=== PATIENT | female | born 1985 | race Caucasian/White ===

== ENCOUNTER → 2017-11-23 17:44 | Observation (INO) ==
[2017-11-23 15:08] VITALS: BP 120/84
[2017-11-23 15:53] LABS: Basophils % 0.2 %; Eosinophils # 0.2 K/mcL (0.0-0.6); Eosinophils % 1.8 %; Hematocrit 36.1 % (35.3-44.9); Hemoglobin 12.1 g/dL (11.5-15.4); Immature Granulocytes % 0.5 % (0-4); Lymphocytes # 2.2 K/mcL (0.6-4.6); Mean Corpuscular HGB Conc 33.5 g/dL (31.6-35.5); Mean Corpuscular Hemoglobin 28.9 pg (28.0-33.3); Mean Corpuscular Volume 86.4 fL (83.0-100.0); Mean Platelet Volume 13.2 fL (9.4-12.4); Monocytes # 0.8 K/mcL (0.0-1.3); Monocytes % 8.2 %; Neutrophils # 6.1 K/mcL (1.6-8.9); Platelet Count 161 K/mcL (140-400); Red Blood Count 4.18 M/mcL (3.82-4.97); Red Cell Distribution Width 13.2 % (11.5-14.5); Segmented Neutrophils % 65.3 %
[2017-11-23 16:05] LABS: Amphetamine Screen,Urine Negative ng/mL (Cutoff=1000); Barbiturate Screen,Urine Negative ng/mL (Cutoff=200); Benzodiazepines Screen,Urine Negative ng/mL (Cutoff=200); Cannabinoid Screen,Urine Negative ng/mL (Cutoff = 50); Cocaine Screen,Urine Negative ng/mL (Cutoff= 300); Opiate Screen,Urine Negative ng/mL (Cutoff=300); Phencyclidine Screen,Urine Negative ng/mL (Cutoff=25)
[2017-11-23 16:13] LABS: Alanine Aminotransferase 16 Units/L (7-52); Aspartate Amino Transferase 19 Units/L (13-39); BUN/Creatinine Ratio 18 (6-26); Blood Urea Nitrogen 8 mg/dL (6-20); Lactate Dehydrogenase 137 Units/L (140-271); Uric Acid 3.3 mg/dL (2.3-7.6); eGFR For African Americans > 60 (> 60); eGFR For Non-African Americans > 60 (> 60)
[2017-11-23 17:00] LABS: Protein/Creatinine Ratio,Urine 0.18 mg/mg (0.00-0.20)
--- NOTE | 2017-11-23 17:42 | OB/GYN Progress Note ---
Date of Encounter: 11/23/17 Time of Encounter: 17:29 - Assessment and Plan (1) NST (non-stress test) reactive Current Visit: Yes Status: Acute NST reactive PIH labs negative, pt asymptomatic BPs stable, last 124/78 Pt counseled on labor precautions and concerning sx. Will discharge, has f/u Sunday with Dr. Vicente. (2) 36 weeks gestation of Current Visit: Yes Status: Acute Subjective - Subjective Principal diagnosis: PIH Eval Interval history: Ms. Gunter is a 32 y/o F at 36 2/7 weeks gestation who presents from the office for PIH eval. She sees. Dr. Vicente, who she saw today and he noted elevated BP of 142/92. She reports good movement. She denies feeling any contractions, HÉCTOR, VB, DELGADO, visual changes, dizziness, CP, SOB. Antepartum ROS: movement normal, no loss of fluid, no vaginal bleeding, no contractions Objective - Vital Signs Vital Signs: Vital Signs Temp Pulse Resp BP 11/23/17 15:02 97.4 F L 106 20 120/84 - Exam FHR: auscultation normal, category 1 Auscultation: bilateral: normal Abdomen: Present: normal appearance, soft, gravid Uterus: Present: normal, firm - Labs Labs: Abnormal lab results MPV 13.2 fL (9.4-12.4) H 11/23/17 15:02 Creatinine 0.45 mg/dL (0.60-1.20) L 11/23/17 15:02 Lactate Dehydrogenase 137 Units/L (140-271) L 11/23/17 15:02 Urine Total Protein 31 mg/dL (1-14) H 11/23/17 15:24
== END | disposition home or self-care (01) ==
LOC: 1NENULAB
PROVIDERS: ADMIT Obstetrics & Gynecology; ATTEND Obstetrics & Gynecology

== ENCOUNTER 2017-12-06 04:00 | Inpatient (IN) ==
[2017-12-06] MEDS ORDERED: *HR* Nalbuphine 10 MG/ML AMPUL IVP PRN (05:04)
[2017-12-06] MEDS ORDERED: miSOPROStol 25 MCG TABLET VG PRN (05:04)
[2017-12-06] MEDS ORDERED: Naloxone 0.4 MG/ML INJ IVP PRN ×4 (05:04→17:48)
[2017-12-06] MEDS ORDERED: Famotidine 20 MG/2 ML VIAL IVP PRN (05:04)
[2017-12-06 05:26] LABS: Basophils % 0.3 %; Eosinophils # 0.2 K/mcL (0.0-0.6); Eosinophils % 2.3 %; Hematocrit 35.2 % (35.3-44.9); Hemoglobin 11.7 g/dL (11.5-15.4); Immature Granulocytes % 0.6 % (0-4); Lymphocytes # 2.6 K/mcL (0.6-4.6); Mean Corpuscular HGB Conc 33.2 g/dL (31.6-35.5); Mean Corpuscular Hemoglobin 28.6 pg (28.0-33.3); Mean Corpuscular Volume 86.1 fL (83.0-100.0); Mean Platelet Volume 12.8 fL (9.4-12.4); Monocytes # 0.9 K/mcL (0.0-1.3); Monocytes % 9.7 %; Neutrophils # 5.8 K/mcL (1.6-8.9); Platelet Count 140 K/mcL (140-400); Red Blood Count 4.09 M/mcL (3.82-4.97); Red Cell Distribution Width 13.4 % (11.5-14.5); Segmented Neutrophils % 60.1 %
--- NOTE | 2017-12-06 06:11 | OB/GYN History & Physical ---
Date of Encounter: 12/06/17 Time of Encounter: 05:57 Assessment and Plan (1) 38 weeks gestation of Current visit: Yes Status: Acute (2) Gestational hypertension affecting third Current visit: Yes Status: Acute Admit for IOL. Cytotec 25mcg given vaginally upon admission. Epidural if requested. GBS negative. Anticipate . Plan for tubal ligation per pt request. History of Present Illness Chief complaint: gestational hypertension HPI: Ms. Gunter is a 32 year old female presenting at 38w1d for IOL due to gestational hypertension. She denies complaints upon admission. Blood type A positive Rubella immune Serologies negative GBS negative Past Med Surg Social Fam HX - Past Medical History Medical history: no medical history Psychiatric history: no psych history - Past Surgical History Surgical History: no surgical history - Social History Smoking Status: Never smoker Smokeless Tobacco Status: No Alcohol use: none Drug use: none - Family History Mother Hx Family Cardiac Disorders: Yes (hypertension) Obstetrical History - Pregnancies : 3 Term: 2 Livin - History/Complications History/Complications: Pre-eclampsia with previous Medications and Allergies Complete Caplet 1 tab PO DAILY 11/23/17 [History] Ascorbic Acid [Vitamin C] 500 mg PO DAILY 12/06/17 [History] 3 Allergy/AdvReac Type Severity Reaction Status Date / Time No Known Allergies Allergy Verified 11/23/17 15:10 Review of System OB All systems PM: reviewed and no additional remarkable complaints except as stated Exam - Constitutional Constitutional: well developed, well nourished, no acute distress - HEENT HEENT: Mucus Membranes Moist - Lungs Respiratory exam: CTAB - Cardiovascular Cardiovascular exam: RRR - Abdomen Abdomen: Present: gravid, non tender - Extremities Extremities exam: normal inspection Deep Tendon Reflex Grade: 2+ Normal - Uterus Uterus exam: Present: normal size - Anus/Rectum Anus/Rectum: Present: normal perianal skin Results Result Diagrams: 12/06/17 05:07 Abnormal lab results Hct 35.2 % (35.3-44.9) L 12/06/17 05:07 MPV 12.8 fL (9.4-12.4) H 12/06/17 05:07 All other labs normal. - VTE Reasons for not Prescribing Prophylaxis: Treatment not Indicated - Low risk for VTE
[2017-12-06 07:18] LABS: Amphetamine Screen,Urine Negative ng/mL (Cutoff=1000); Barbiturate Screen,Urine Negative ng/mL (Cutoff=200); Benzodiazepines Screen,Urine Negative ng/mL (Cutoff=200); Cannabinoid Screen,Urine Negative ng/mL (Cutoff = 50); Cocaine Screen,Urine Negative ng/mL (Cutoff= 300); Opiate Screen,Urine Negative ng/mL (Cutoff=300); Phencyclidine Screen,Urine Negative ng/mL (Cutoff=25)
--- NOTE | 2017-12-06 12:26 | OB Labor Progress Note ---
Date of Encounter: 12/06/17 Time of Encounter: 12:24 Labor Progress Note - Subjective Subjective: patient is doing well, feeling more of her ctxs - Vital Signs Vital Signs: VSS - Cervix Cervix: 70 - Heart Tones Heart Tones: CAT 1 - Pineland Pineland: Q1 - Plan Plan: hold off on pitocin due to tachysystole, will start pit when resolved, ok for epidural when desired, anticipate
[2017-12-06] MEDS: Ringers Solution, Lactated 1,000 ML IVC SCH (13:11)
[2017-12-06] MEDS: Oxytocin 20 units/ LR 1000 mL 20 UNIT/1,000 ML BAG IVC SCH ×2 (13:13→23:04)
[2017-12-06] MEDS ORDERED: Ondansetron 4 MG/2 ML VIAL IVP PRN ×3 (14:13→17:48)
[2017-12-06] MEDS ORDERED: Bupivacaine-MPF 0.25% 10 ML VIAL EP ONE (14:13)
[2017-12-06] MEDS ORDERED: *HR* FentaNYL (PF) 100 MCG/2 ML VIAL EP ONE (14:13)
[2017-12-06] MEDS ORDERED: EPHEDrine 50 MG/ML VIAL IVP PRN (14:13)
[2017-12-06] MEDS ORDERED: Epidural Premix (fent/bupiv) 110 ML EP SCH (14:15)
--- NOTE | 2017-12-06 14:20 | Anesthesia Evaluation PreOp ---
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 No surgeries in pt history, no family history of anesthesia complications.) : Yes Alcohol Use: none Drug use: none Medications and Allergies Complete Caplet 1 tab PO DAILY 11/23/17 [History] Ascorbic Acid [Vitamin C] 500 mg PO DAILY 12/06/17 [History] 3 Allergy/AdvReac Type Severity Reaction Status Date / Time No Known Allergies Allergy Verified 11/23/17 15:10 - Meds/Allergy Pre-op Review Medications Reviewed: Yes Allergies Reviewed: Yes Beta Blockers on Current Med List: No Anesthesia Results - Labs 12/06/17 05:07 Anesthesia Exam BP 143/99 P 82 R 16 T 97.5 Height: 5'7" Weight: 93.6kg Pain Scale: 3 Pain Scale Used: Numeric (1 - 10) - HEENT Pupil (Motor): Pupils equal Mallampati: II Teeth: Normal Oral Opening: Greater than 3 - CRUSHER SCREEN REPAIRER LOC: Oriented CRUSHER SCREEN REPAIRER Motor: Normal RUE, Normal LUE, Normal RLE, Normal LLE, Normal Face CRUSHER SCREEN REPAIRER Sensory: Normal: RUE, LUE, RLE, LLE, Face - Cardiac Rhythm: Regular Murmur: None JVD: No Carotid Bruit: No - Pulmonary Breath Sounds: bilateral Clear Respiratory Effort: Symmetrical Anesthesia Assess/Plan ASA Score: 2 Modified Barry Scale for Level of Consciousness: Cooperative, oriented, and tranquil Anesthetic Plan: Regional Autologous Blood: No Monitoring Plan: Standard Monitors Recovery Plan: Other
[2017-12-06] MEDS ORDERED: *HR* FentaNYL (PF) 100 MCG/2 ML VIAL ONE (14:40)
[2017-12-06] MEDS ORDERED: Bupivacaine-MPF 0.25% 10 ML VIAL ONE (14:40)
[2017-12-06] MEDS ORDERED: Epidural Premix (fent/bupiv) 110 ML EP ONE (14:48)
[2017-12-06] MEDS ORDERED: EPHEDrine 50 MG/ML VIAL ONE (15:22)
--- NOTE | 2017-12-06 15:41 | Anesthesia Procedures ---
Date of Encounter: 12/06/17 Time of Encounter: 14:45 Procedures: Anesthesia - Epidural/Spinal Patient ID/Chart reviewed: Yes Patient examined: Yes OB Eval: Gestational age: 38.1 OB Eval: : 3 OB Eval: Hx Para: 2 OB Eval: Dilated at (cm): 4 OB Eval: Contractions: Non-stressed pattern Consent Obtained: Yes Supplemental Oxygen: None/Room Air Site Prep: Aseptic Technique, Sterile prep and drape, Povidone-Iodine 1% Patient position: upright Local Anesthetic: Lidocaine 1% Amount of Local Anesthetic used: 3 Touhy Needle Gauge: 18 Touhy Needle Depth (cm): 6 Catheter Depth at Skin (cm): 15 Test Dose (1.5% Lido + Epi): Volume given (mls): 3 Test Dose Result: Negative Loading Dose: 0.25% Marcaine (mls): 10 Loading Dose: Fentanyl (mcg): 100 Loading Dose Administered: Thru Catheter Infusion Med: 0.125% Bupivacaine w/ 2 mcg/ml Fentanyl Infusion Rate (mls/hr): [address]: Tegaderm, Tape Interspace Used: L4-L5 Loss of Resistance (IMMANUEL): Yes Blood: No CSF: No Paresthesia: No Procedure: BARRETT placed 1st pass in upright position without any immediate noted complications. Vitals + FHT's: 1445 BP 140/99 R 18 P 87 1515 BP 111/75 R 16 P 78 FHT 130s
--- NOTE | 2017-12-06 16:02 | OB Labor Progress Note ---
Date of Encounter: 12/06/17 Time of Encounter: 16:02 Labor Progress Note - Subjective Subjective: s/p epidural, had some late decels with epid due to drop in BP but with recovery - Vital Signs Vital Signs: VSS - Cervix Cervix: 4/80 - Heart Tones Heart Tones: CAT 2 - Plan Plan: patient AROM'ed with clear fluid cont watching strip
[2017-12-06] MEDS ORDERED: Morphine Sulfate/PF 5mg/10mL Vial ONE (16:42)
[2017-12-06] MEDS ORDERED: *HR* OxyCODONE/APAP 5/325 TABLET PO PRN ×2 (16:55→17:48)
[2017-12-06] MEDS ORDERED: *HR* Morphine 2 MG/ML SYRINGE IVP PRN (16:55)
[2017-12-06] MEDS ORDERED: Ibuprofen 400 MG TABLET PO PRN (16:55)
[2017-12-06] MEDS ORDERED: *HR* Oxytocin 10 UNIT/ML VIAL IM ONE (17:04)
[2017-12-06] MEDS ORDERED: Ringers Solution, Lactated 2,000 ML ONE (17:07)
[2017-12-06] MEDS ORDERED: Ondansetron 4 MG/2 ML VIAL ONE (17:16)
--- NOTE | 2017-12-06 17:22 | OB/GYN Procedure Note ---
OB-SUPPLY TECH: Procedure - Diagnosis Date of procedure: 12/06/17 Pre-op diagnosis: CAT 2 tracing, malpresentation(foot as presenting part) , undesired fertility Post-op diagnosis: same - Procedure Procedure: Primary , bilateral partial salpingectomy Surgeon: Tarik Vicente Was there an restaurant assistant present: Yes Senior Erp Consultant: Delgado Swenson Anesthesia Type: General Estimated blood loss (cc): 300 Fluids: crystalloid Procedure Complications: none Specimens collected: bilateral tubes, placenta Disposition: floor Findings: fibroid uterus, normal tubes and ovaries Narrative: Indications: Mervin is a 32 y/o @ 38+1 weeks who was being induced for gestational hypertension. She got her epidural, membranes were ruptured and shortly afterwards it was noted that she started having recurrent variable decels. She was checked and it was noted that the feet could be felt "wedged" in with the head. After counseling the patient, the decision was made to perform a section. She had signed a tubal consent form in the office to have her tubes tied and declared that instead of coming back to the office to have a procedure done in 3 months s/p vag delivery(which was what we hoped for) she would give verbal consent to perform bilateral partial salpingectomy at time of the . She gave verbal consent for bilateral partial salpingectomy. Procedure: The patient was taken to the operating room where epidural anesthesia was found to be adequate. The patient was prepped and draped in the usual sterile fashion in the dorsal supine position with a left-lora tilt. A Pfannenstiel skin incision was made with the scalpel and carried through to the underlying layer of fascia. The fascia was incised in the midline and extended laterally using Farnsworth scissors. Santana clamps were used to elevate the superior aspect of the fascial incision, which was elevated, and the underlying rectus muscles were dissected off bluntly and using Farnsworth scissors. Attention was then turned to the inferior aspect of the fascial incision, which in similar fashion was grasped with Santana clamps, elevated, and the underlying rectus muscles were dissected off bluntly and using Farnsworth scissors. The rectus muscles were dissected in the midline. The peritoneum was bluntly dissected, entered, and extended superiorly and inferiorly with good visualization of the bladder. The bladder blade was inserted. The vesicouterine peritoneum was identified with pickups and entered sharply using Metzenbaum scissors. This incision was extended laterally and the bladder flap was created digitally. The bladder blade was reinserted. The lower uterine segment was incised in a transverse fashion using the scalpel and extended using manual traction. The was subsequently delivered atraumatically. The nose and mouth were bulb suctioned. The cord was clamped and cut. The was subsequently handed to the awaiting nursery nurse. The placenta was removed spontaneously intact with a 3-vessel cord noted. The uterus was exteriorized and cleared of all clots and debris. The uterine incision was repaired in 2 layers using 0 vicryl suture. Hemostasis was visualized. At this point, attention was diverted to the patient's tubes, a Lansing clamp grasped the isthmic portion of each tube and approximately 1-cm knuckle on either side was tied off with two lengths of 0 plain catgut. Intervening knuckle was excised and passed off the field. The uterus was returned to the abdomen. The uterine incision was reexamined and was noted to be hemostatic. The fascia was closed with 0 Vicryl, the subcutaneous layer was closed with 3-0 plain gut after irrigation, and the skin was closed with 4-0 vicryl. Sponge, lap, and instrument counts were correct x2. The patient was stable at the completion of the procedure and was subsequently transferred to the recovery room in stable condition.
[2017-12-06] MEDS ORDERED: Metoclopramide 10 MG/2 ML VIAL IVP PRN (17:48)
[2017-12-06] MEDS ORDERED: Sennosides 8.6 MG TABLET PO PRN (17:48)
[2017-12-06] MEDS ORDERED: Oxytocin 20 units/ LR 1000 mL 20 UNIT/1,000 ML BAG IVC SCH (18:00)
[2017-12-06] MEDS ORDERED: Ringers Solution, Lactated 1,000 ML IVC SCH (18:00)
--- NOTE | 2017-12-06 22:26 | Anesthesia Evaluation Post Op ---
Date of Encounter: 12/06/17 Time of Encounter: 18:30 - Vital Signs Vital Signs: Vital Signs Temperature 98.8 F 12/06/17 20:00 Pulse Rate 111 12/06/17 20:00 Respiratory Rate 14 12/06/17 20:00 Blood Pressure 131/93 12/06/17 20:00 O2 Sat by Pulse Oximetry 97 12/06/17 20:00 Temperature 98.3 F 12/06/17 22:00 Pulse Rate 96 12/06/17 22:00 Respiratory Rate 14 12/06/17 22:00 Blood Pressure 133/86 12/06/17 22:00 O2 Sat by Pulse Oximetry 98 12/06/17 22:00 - Lungs Lungs: Clear Ascult./Percussion - Airway Airway: Non-obstructed - Cardiovascular Regular Rate - Mental Status Mental Status: Alert & Oriented, Answers Appropriately - Pain Pain Scale: 3 Pain Scale used: Numeric (1 - 10) - Nausea Vomiting Nausea Vomiting: Not Present - Hydration Hydration: NPO, Baker catheter - Discharge PostOp Status: Transfer Patient to floor
[2017-12-07 04:41] LABS: Basophils % 0.4 %; Eosinophils # 0.1 K/mcL (0.0-0.6); Eosinophils % 0.8 %; Hematocrit 32.9 % (35.3-44.9); Hemoglobin 10.8 g/dL (11.5-15.4); Immature Granulocytes % 0.5 % (0-4); Lymphocytes # 1.7 K/mcL (0.6-4.6); Lymphocytes % 16.4 %; Mean Corpuscular HGB Conc 32.8 g/dL (31.6-35.5); Mean Corpuscular Hemoglobin 28.5 pg (28.0-33.3); Mean Corpuscular Volume 86.8 fL (83.0-100.0); Mean Platelet Volume 12.6 fL (9.4-12.4); Monocytes # 0.9 K/mcL (0.0-1.3); Monocytes % 8.3 %; Neutrophils # 7.8 K/mcL (1.6-8.9); Platelet Count 120 K/mcL (140-400); Red Blood Count 3.79 M/mcL (3.82-4.97); Red Cell Distribution Width 13.6 % (11.5-14.5); Segmented Neutrophils % 73.6 %
[2017-12-07] MEDS: Ringers Solution, Lactated 1,000 ML IVC SCH (06:33)
[2017-12-07] MEDS: Simethicone 80 MG TAB.CHEW PO PRN ×3 (06:33→14:13)
[2017-12-07] MEDS: Prenatal Vit/FA 1 EACH TABLET PO SCH (08:15)
--- NOTE | 2017-12-07 08:57 | OB/GYN Progress Note ---
Date of Encounter: 12/07/17 Time of Encounter: 08:55 - Assessment and Plan (1) Status post primary low transverse section Current Visit: Yes Status: Acute Continue routine postop/ care discharge home tomorrow (2) Patient is a currently breast-feeding mother Current Visit: Yes Status: Acute support prn Subjective - Subjective Principal diagnosis: postop day 1 primary c/s for malpresentation Interval history: Patient doing well. meeting day 1 milestones. Patient denies pain at this time. Reports light lochia. Medipore dressing dry and intact. Patient reports: appetite normal, voiding normally, pain well controlled, ambulating normally [place]: doing well, nursing well Objective - Vital Signs Latest vital signs: Vital Signs Temp Pulse Resp BP Pulse Ox 12/07/17 07:42 98.5 F 81 16 106/69 12/07/17 04:02 98.3 F 82 16 113/76 98 12/06/17 23:00 98.4 F 84 16 117/78 96 12/06/17 22:00 98.3 F 96 14 133/86 98 12/06/17 21:05 14 12/06/17 21:00 97.7 F 92 14 131/86 97 12/06/17 20:35 98.1 F 101 14 128/86 97 12/06/17 20:00 98.8 F 111 14 131/93 97 Intake and Output 12/06/17 12/07/17 12/07/17 23:59 07:59 15:59 Intake Total 1993 360 / 360 Output Total 400 / 400 750 / 750 400 / 400 Balance 1594 / 1594 -750 / -750 -40 / -40 Intake: IV Fluids 1993 Pitocin 20 unit In 1,000 ml @ 994 / 994 Per Protocol IVC .Q0M LUIS M Rx#: [id number] Lactated Ringers 1,000 ML @ 125 1000 / 1000 mls/hr IVC .Q8H LUIS M Rx#: [id number] Oral 360 / 360 Output: Urine 400 / 400 Catheter 400 / 400 750 / 750 Other: Meal Breakfast Percent of Meal Consumed 100% Weight 92.6 kg - Exam Lungs: bilateral: normal Chest: Normal S1, Normal S2 Extremities: Present: normal Abdomen: Present: normal appearance, soft Incision: Present: normal, dry, dressed Uterus: Present: normal, firm Fundal Height: 1 (U/1) - Labs Labs: Laboratory Results - last 24 hr 12/07/17 04:10 WBC 10.6 RBC 3.79 L Hgb 10.8 L Hct 32.9 L MCV 86.8 MCH 28.5 MCHC 32.8 RDW 13.6 Plt Count 120 L MPV 12.6 H Immature Gran % 0.5 Seg Neutrophils % 73.6 Lymphocytes % 16.4 Monocytes % 8.3 Eosinophils % 0.8 Basophils % 0.4 Neutrophils # 7.8 Lymphocytes # 1.7 Monocytes # 0.9 Eosinophils # 0.1 Basophils # 0.0
[2017-12-07] MEDS: Ibuprofen 600 MG TABLET PO PRN ×2 (14:11→21:33)
[2017-12-08] MEDS: Prenatal Vit/FA 1 EACH TABLET PO SCH (08:04)
[2017-12-08 08:19] VITALS: BP 110/80
--- NOTE | 2017-12-08 10:03 | Discharge Summary ---
Date of Encounter: 12/08/17 Time of Encounter: 10:01 - Discharge Diagnosis (1) anemia Priority: Secondary Status: Acute Comments: Continue iron daily through PP visit (2) Gestational hypertension affecting third Priority: Secondary Status: Acute Comments: PIH labs negative on discharge day (3) Status post primary low transverse section Priority: Primary Status: Acute Comments: Pain well controlled with PO pain meds tolerating regular diet Voiding normally Passing flatus, but no BM yet Ambulating independently well Discharge home today - Discharge Medications Prescriptions: OxyCODONE/APAP 5/325 [Percocet 5/325 MG] 1 each PO Q4HR PRN 5 Days #30 tablet PRN Reason: Moderate pain 4-6 Ibuprofen [Motrin] 600 mg PO Q6HR PRN #30 tablet PRN Reason: Cramping Docusate [Colace] 100 mg PO BID #60 capsule Ferrous Sulfate 325 mg PO DAILY #60 tablet Home Medications: Complete Caplet 1 tab PO DAILY 11/23/17 [History] Ascorbic Acid [Vitamin C] 500 mg PO DAILY 12/06/17 [History] Docusate [Colace] 100 mg PO BID #60 capsule 12/08/17 [Rx] Ferrous Sulfate 325 mg PO DAILY #60 tablet 12/08/17 [Rx] Ibuprofen [Motrin] 600 mg PO Q6HR PRN #30 tablet 12/08/17 [Rx] OxyCODONE/APAP 5/325 [Percocet 5/325 MG] 1 each PO Q4HR PRN 5 Days #30 tablet [Rx] Simethicone [Gas-X] 80 mg PO TID PRN tab.chew 12/08/17 [Rx] Allergies/Adverse Reactions: 3 Allergy/AdvReac Type Severity Reaction Status Date / Time No Known Allergies Allergy Verified 11/23/17 15:10 Data Procedures and tests throughout hospitalization: Laboratory Tests 12/06/17 12/06/17 12/07/17 04:45 05:07 04:10 WBC 9.6 10.6 RBC 4.09 3.79 L Hgb 11.7 10.8 L Hct 35.2 L 32.9 L MCV 86.1 86.8 MCH 28.6 28.5 MCHC 33.2 32.8 RDW 13.4 13.6 Plt Count 140 120 L MPV 12.8 H 12.6 H Immature Gran % 0.6 0.5 Seg Neutrophils % 60.1 73.6 Lymphocytes % 27.0 16.4 Monocytes % 9.7 8.3 Eosinophils % 2.3 0.8 Basophils % 0.3 0.4 Neutrophils # 5.8 7.8 Lymphocytes # 2.6 1.7 Monocytes # 0.9 0.9 Eosinophils # 0.2 0.1 Basophils # 0.0 0.0 Urine Opiates Screen Negative Ur Barbiturates Screen Negative Ur Phencyclidine Scrn Negative Ur Amphetamines Screen Negative U Benzodiazepines Scrn Negative Urine Cocaine Screen Negative U Marijuana (THC) Screen Negative Date of admission: 12/06/17 04:19 Primary care physician: PCP NONE Discharging clinician: Roxy Boucher Anticipated date of discharge: 12/08/17 - Patient Status Disposition: Home, Self-Care Condition: Good Functional capacity at discharge: independent ambulation Overall status at discharge: patient is progressing back to baseline - Discharge Instructions Follow Up With: NONE,PCP [Primary Care Provider] - Bharat Forte [Family Provider] - Tarik Vicente MD [Partnered Physician] - - Diet and Activity Activity: increase activity as tolerated Diet: regular diet Hospital Course Reason for admission: induction of labor, IUP at term Delivery: section Episiotomy: none Laceration: none Other procedures: none complications: none Discharge diagnosis: IUP at term delivered [place] baby: male Time Attestation: Total time spent providing and/or coordinating discharge services: Time Spent: Less than 30 minutes - VTE Reasons for not Prescribing Prophylaxis: Treatment not Indicated - Low risk for VTE Documentation of Mechanical Device: Intermittent pneumatic compression device Exam - Constitutional Vitals: Temp Pulse Resp BP Pulse Ox 98.1 F 101 18 110/80 98 12/08/17 08:18 12/08/17 08:18 12/08/17 08:18 12/08/17 08:18 12/08/17 08:18 General appearance IM: A&O X 3 - Respiratory Respiratory exam: Present: CTAB - Cardiovascular Cardiovascular exam IM: Present: RRR, +S1, +S2 - GI/Abdominal GI/Abdominal exam IM: normal bowel sounds, no peritoneal signs Incision: normal, dry, intact - Uterine Tone: Firm Uterus Position: At Umbilicus, Midline - Extremities Exam Extremities exam IM: Present: normal inspection, radial pulses palpable and symmetrical - Neurological Exam Neurological exam: alert, oriented X3 - Psychiatric Additional comments: Pt feeling mentally well today. No history of PPD. S/sx of PPD discussed and pt verbalized understanding of when to call.
== END 2017-12-08 13:00 | disposition home or self-care (01) | DRG 766 ==
LOC: 1NENULAB 04:19 → 1NENUOBS 19:43
PROVIDERS: ADMIT Student in an Organized Health Care Education/Training Program; ATTEND Student in an Organized Health Care Education/Training Program